=== PATIENT | female | born 1970 | race Caucasian/White ===

== ENCOUNTER 2024-05-22 08:10 | Outpatient (RCR) | payer BC, SELFPAY | END 2024-05-26 14:55 | disposition home or self-care (01) | LOC: HO.OT 08:10 | PROVIDERS: PCP Internal Medicine; Visit Provider Radiology Vascular & Interventional Radiology | DX: R22.42 Localized swelling, mass and lump, left lower limb (principal) | CPT/HCPCS: 97110; 97140; 97165; 97535 ==